=== PATIENT | male | born 1985 | race Caucasian/White ===

== ENCOUNTER 2016-12-16 20:22 | Emergency (ER) | payer OTHER ==
[2016-12-16] MEDS ORDERED: LIDOCAINE 1% INJ-PF (10 MG/ML) 30 ML SDV INJ ONE (21:13)
--- NOTE | 2016-12-16 22:03 | ER Document Report ---
HPI - HPI Pain Level: 2 Notes: Patient is a 31-year-old male who presents to the ED complaining of a laceration to his right index finger by a clean, non-rested, petey knife this evening just prior to arrival. Patient states that he still has sensation and movement to the finger and is complaining of just the laceration and the bleeding. He has been keeping it wrapped up. Patient states that his tetanus was within the last 2 or 3 years. No other concerns or complaints. Patient takes no medicines daily. No known drug allergies. No significant past medical history. Patient is a non-smoker. Patient does not have a PCM at this time. Denies any fever, headaches, chest pain, cough, shortness of breath, abdominal pain, nausea/vomiting. - ROS Notes: REVIEW OF SYSTEMS: CONSTITUTIONAL : Denies fever, chills, or sweats. Denies recent illness. CARDIOVASCULAR: Denies chest pain. Denies palpitations or racing or irregular heart beat. Denies ankle edema. RESPIRATORY: Denies cough, cold, or chest congestion. Denies shortness of breath, difficulty breathing, or wheezing. GASTROINTESTINAL: Denies abdominal pain or distention. Denies nausea, vomiting , or diarrhea. Denies blood in vomitus, stools, or per rectum. Denies black, tarry stools. Denies constipation. MUSCULOSKELETAL: see hpi SKIN: see hpi. NEUROLOGICAL: Denies sensory loss, numbness, or tingling. ALL OTHER SYSTEMS REVIEWED AND NEGATIVE. Dictation was performed using [employer] voice recognition software - CARDIOVASCULAR Cardiovascular: DENIES: Chest pain - DERM Skin Color: Normal Past Medical History - Social History Smoking Status: Never Smoker Family History: Reviewed & Not Pertinent Patient has suicidal ideation: No Patient has homicidal ideation: No Renal/ Medical History: Denies: Hx Peritoneal Dialysis Surgical Hx: Negative Vertical Provider Document - CONSTITUTIONAL Notes: PHYSICAL EXAMINATION: GENERAL: Well-appearing, well-nourished and in no acute distress. LUNGS: Breath sounds clear to auscultation bilaterally and equal. No wheezes rales or rhonchi. HEART: Regular rate and rhythm without murmurs, rubs, gallops. Musculoskeletal: Rt index finger: FROM to passive/active. Strength 5+/5. No tendon compromise. radial pulse 2+. Good perfusion with cap refill <3sec. sensation intact distally. Extremities: No cyanosis, clubbing, or edema b/l. Peripheral pulses 2+. Capillary refill less than 3 seconds. NEUROLOGICAL: Cranial nerves grossly intact. Normal speech, normal gait. Normal sensory, motor exams PSYCH: Normal mood, normal affect. SKIN: 1.2cm clean laceration noted to the lateral rt index finger. No active bleeding. - INFECTION CONTROL TRAVEL OUTSIDE OF THE [place] IN LAST 30 DAYS: No - RESPIRATORY O2 Sat by Pulse Oximetry: 99 Course - Re-evaluation Re-evalutation: 12/16/16 22:55 Patient is a 31-year-old afebrile, well-hydrated male who presents with a 1.2 cm clean laceration to his right index finger. Vitals are stable. The finger is neurovascularly intact aced on physical exam. 4 simple interrupted sutures 6 -0 nylon material used to successfully close and approximate the wound edges with only minimal complications. The complications being 2 sutures tore and 2 pulled through the skin. It was too late to get the 5-0 that I requested and talked the situation through with the patient who seemed agreeable to keep going with the 6-0. Explained that I had to take a little bit bigger bites of the skin to approximate the edges. Reviewed that with the thinner suture material, that we will splint for a few days until the wound has time to heal and strengthen up. Wound dressing placed. I will send him home with Keflex twice a day for 5 days as precautionary. The sutures will need removed in about 10 days. Advised that he established with a PCM within that timeframe and recheck of wound in 2-3 days. Consider orthopedics for any loss of strength , numbness in the digits. Return to the ED with any other worsening or concerning symptoms or for suture removal as needed. Patient in agreement. - Vital Signs Vital signs: Temp Pulse Resp BP Pulse Ox 98.7 F 66 18 130/98 H 99 12/16/16 20:27 12/16/16 20:27 12/16/16 20:27 12/16/16 20:27 12/16/16 20:27 Procedures - Laceration/Wound Repair Right 2nd digit Time completed: 10:52 Wound length (cm): 1.2 Wound's Depth, Shape: Superficial, Linear Laceration pre-procedure: Sterile PPE donned, Chloraprep applied, Sterile drapes applied, Shur-Clens applied, Other - saline Anesthetic type: 1% Lidocaine Volume Anesthetic (mLs): 8 Wound explored: Clean Wound Debrided: Minimal Wound Repaired With: Sutures Suture Size/Type: 6:0 - --was to be 5-0 Number of Sutures: 5 Layer Closure?: No Post-procedure wound care: Sterile dressing applied, Splint applied Post-procedure NV exam normal: Yes Complications: Yes - 2 suture pulled through skin. 2 sutures ripped at the string. Discharge - Discharge Clinical Impression: Finger laceration Qualifiers: Encounter type: initial encounter Finger: index finger Damage to nail status: without damage Foreign body presence: without foreign body Laterality: right Qualified Code(s): S61.210A - Laceration without foreign body of right index finger without damage to nail, initial encounter Condition: Stable Disposition: HOME, SELF-CARE Instructions: Antibiotic Ointment Protection ([facility]), Laceration Care ([facility]), Prophylactic Antibiotic ([facility]), Soap Cleansing ([facility]) Additional Instructions: Do not shower or bathe for 24 hours. After 24 hours you may shower but no submersion of the wound under water. Keep the original dressing on the wound for 24 hours unless the drainage soaks through. Change the dressing daily thereafter and keep the knots of the suture material clean from any dried discharge. You may leave the wound open to the air once there is no more discharge. Return to the ED and/or your PCM in 2-3 days for a recheck. Monitor for any signs of worsening pain or redness, purulent drainage, streaks, and/or fever. Return to the ED if noticing any of the above symptoms or as needed. Take medications as directed. Your sutures will need to be removed in 10-14 days. Prescriptions: Cephalexin Monohydrate [Keflex 500 mg Capsule] 500 mg PO BID #10 capsule Forms: Elevated Blood Pressure Referrals: [facility] [Provider Group] - Follow up as needed
[2016-12-16] MEDS ORDERED: CEPHALEXIN 500 MG CAPSULE PO ONE (23:00)
[2016-12-16 23:23] VITALS: BP 127/84
== END 2016-12-16 23:22 | disposition home or self-care (01) ==
LOC: ER 20:22
PROC: 0HQFXZZ Repair Right Hand Skin, External Approach (ICD-10-PCS; principal; 2016-12-16)
DX: S61.210A Laceration without foreign body of right index finger without damage to nail, initial encounter (principal); W26.0XXA Contact with knife, initial encounter; Y93.89 Activity, other specified
CPT/HCPCS: 99282; 12001; J3490